=== PATIENT | female | born 1940 | race Caucasian/White ===

== ENCOUNTER → 2016-11-20 | Day surgery (SDC) | payer MEDICARE ==
[~2016-11-20] MED LIST: ACETAMINOPHEN500 M6 PO; AFRIN3 ML; ASPIRIN81 M2 PO; ATENOLOL; CIPRO PO; DILTIAZEM ER60 MG PO; FLONASE ALLERG9.9 ML; FLONASE16 GM; KLOR-CON PO; LISINOPRIL; LISINOPRIL-HCTZ1 T15 PO; LORTAB 10-5001 EACH PO; LORTAB 7.5-5001 TAB; MEGACE PO; MIRALAX17 GM PO; NORVASC; POTASSIUM; TENORMIN50 MG PO; ZOCOR; ZOCOR PO; ZYRTEC PO
--- NOTE | ~2016-11-20 | EKG ---
PATIENT: OLIVIER OROSCO UNIT #: [id number] Ventricular Rate: 67 BPM Atrial Rate: 67 BPM P-R Interval: 156 ms QRS Duration: 88 ms Q-T Interval: 402 ms QTC Calculation(Bezet): 424 ms P [place]: 26 degrees Calculated R [place]: -29 degrees Calculated T [place]: 14 degrees Diagnosis Line: Normal sinus rhythm Diagnosis Line: Minimal voltage criteria for LVH, may be normal Diagnosis Line: variant Diagnosis Line: Otherwise normal ECG Diagnosis Line: When compared with ECG of 07-NOV-2015 11:06, Diagnosis Line: No significant change was found Diagnosis Line: Confirmed by HOMERO TORRES MD ([id number]) on 11/23/2016 Diagnosis Line: 7:21:14 AM INTERPRETING MD: BRIAN KOHLI
--- NOTE | ~2016-11-20 | OR ---
Unit #: [id number] #: [id number] Patient: OLIVIER OROSCO [id number] [address] [place], [place] [address] [id number] O MR#: [id number] NAME: OLIVIER OROSCO ROOM: Date of Procedure: 11/20/2016 Admission Date: 11/20/2016 Surgeon: Saúl Valencia M.D. : 1940 Attending Physician: Saúl Valencia M.D. Referring Physician: Saúl Valencia M.D. Primary Care Physician: Zia Ha M.D. OPERATIVE REPORT PREOPERATIVE DIAGNOSIS Right ureteral stricture. POSTOPERATIVE DIAGNOSIS Right ureteral stricture. PROCEDURE PERFORMED Cystoscopy with right stent exchange in intraoperative retrograde. ANESTHESIA Local. INDICATIONS FOR PROCEDURE This 75-year-old woman has retained a right ureteral stent now for over 1 year after attempts under her prior urologist to manage without it. 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 Her first stent was placed in 2012. Her two most recent stents have been 26 x 6. The patient agrees to attempt today's procedure under local anesthesia. DESCRIPTION OF PROCEDURE The patient was positioned awake in the dorsal lithotomy position. Routine prep and drape performed. Xylocaine jelly was injected in the urethra. Fluoroscopy showed her stent in good position proximally, but crossing over from the right to the left side of bladder distally. The cystoscope was then introduced with the obturator and the bladder drained and refilled. 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 The right ureteral orifice was unremarkable. The stent was grasped with alligator forceps, extracted and its curl amputated to allow placement of a Sensor guidewire. Over this, I placed a smaller 22 x 6 double-J stent after first performing a retrograde to a Pollack catheter to be sure that this that I had not been mislead about the position of the proximal end of the stent. This showed moderate chronic dilation of the renal collecting system. The position of this stent showed that even it was too long, so finally a 20 x 6 stent was internally deployed and in good position proximally and distally possibly a half a size or so too long, but also the shortest stent available today. The bladder was drained. The cystoscope removed and the remainder of the Uro-jet applied. The patient tolerated the procedure very well. We will plan a repeat stent change in 1 year in an office visit prior for evaluation of the ER. Unit #: [id number] #: [id number] Patient: OLIVIER OROSCO Dictated by... Andres Krishnan/cristina TD: 11/21/2016 04:07 JOB #: [id number] Herbie Lebron M.D. OPERATIVE REPORT X Saúl Valencia MD X PROCEDURE OPERATIVE NOTE
== END | disposition home or self-care (01) ==
LOC: CSUR 10:28
DX: N13.1 Hydronephrosis with ureteral stricture, not elsewhere classified (principal); Z90.49 Acquired absence of other specified parts of digestive tract; Z90.710 Acquired absence of both cervix and uterus; Z98.890 Other specified postprocedural states
CPT/HCPCS: 93005; C2617; J0690

== ENCOUNTER → 2017-05-17 | Day surgery (SDC) | payer MEDICARE ==
--- NOTE | ~2017-05-17 | OR ---
Unit #: [id number] #: [id number] Patient: OLIVIER OROSCO [id number] [address] [address] [id number] O MR#: [id number] NAME: OLIVIER OROSCO ROOM: Date of Procedure: 05/17/2017 Admission Date: 05/17/2017 Surgeon: James Valencia M.D. : 1940 Attending Physician: James Valencia M.D. Primary Care Physician: Zia Ha M.D. OPERATIVE REPORT PREOPERATIVE DIAGNOSES The patient has presented for surveillance colonoscopy. She has personal history of colonic polyps removed in the past. In addition, she also mentions increasing constipation. PROCEDURES PERFORMED 1. Colonoscopy and polypectomy. 2. Colonoscopy and submucosal injection. 3. Colonoscopy and ablation. POSTOPERATIVE DIAGNOSES 1. The patient had anal stricture. This was dilated using digital examination. 2. A large multilobulated polyp in the proximal ascending colon just adjacent to the cecal pouch. The polyp was at least 3.5 to 4 cm in size. It was removed after submucosal injection with methylcellulose and methylene blue followed by piecemeal polypectomy. The residual polyp tissue was then ablated using argon plasma coagulation therapy and the gap left by polypectomy was closed using two Endoclips or hemoclips. Only partial removal was possible and remaining polyp resection should be done at a later date after 3 months. SEDATION USED MAC. DESCRIPTION OF PROCEDURE Following detailed explanation of potential risks and complications of a colonoscopy, namely perforation, bleeding, and complications related to sedation, the patient was brought to GI lab and laid in the left lateral decubitus position. A digital rectal examination was performed, which was normal. A digital rectal examination was performed. The latter revealed presence of anal stricture and stenosis. This was dilated using digital examination. Lubricated tip of the Olympus video colonoscope was inserted through the anus and advanced under vision. The scope was advanced past rectosigmoid into descending colon. No diverticula were seen in this area. The scope tip was then navigated all the way up to cecum with visualization of the ileocecal valve and the appendiceal orifice. Preparation was excellent with good visualization and photodocumentation was obtained. Successive segments of the colonic mucosa were examined upon withdrawal. A large sessile multilobulated polyp was noted at the junction of cecum and proximal ascending colon adjacent to ileocecal valve. This was about 3.5 to 4 cm in size. After careful evaluation, it Unit #: [id number] #: [id number] Patient: OLIVIER OROSCO was decided to piecemeal polypectomy after submucosal injection and polyp bed elevation. This was done using injection of about 10 mL of methylcellulose and methylene blue. Piecemeal polypectomy was then done. Significant amount of residual polyp tissue was left behind despite a prolonged procedure. The residual polyp tissue was then ablated using argon plasma coagulation therapy. The gap left by polypectomy was closed using two hemoclips. Excellent hemostasis was achieved. The scope was then withdrawn examining successive segments of the colonic mucosa. No additional polyps were noted. The patient did not have any diverticulosis nor any hemorrhoids. The scope was then withdrawn and the patient returned to the recovery area. She tolerated the procedure without any postprocedure complications. Dictated by... Andres Allred/cristina TD: 05/17/2017 12:19 JOB #: [id number] CC: Zia Ha M.D. OPERATIVE REPORT Page 1 of 1 X James Valencia MD X PROCEDURE OPERATIVE NOTE
== END | disposition home or self-care (01) ==
LOC: COPS 08:14
DX: D12.0 Benign neoplasm of cecum (principal); K62.4 Stenosis of anus and rectum; K59.00 Constipation, unspecified; I10 Essential (primary) hypertension; Z86.010 Personal history of colon polyps; Z85.44 Personal history of malignant neoplasm of other female genital organs; Z92.21 Personal history of antineoplastic chemotherapy; Z92.3 Personal history of irradiation; Z79.82 Long term (current) use of aspirin; Z79.899 Other long term (current) drug therapy; Z90.49 Acquired absence of other specified parts of digestive tract; Z90.710 Acquired absence of both cervix and uterus; Z98.890 Other specified postprocedural states
CPT/HCPCS: 88305; Q9968